=== PATIENT | female | born 1940 | race Caucasian/White ===

== ENCOUNTER 2021-04-15 12:38 | Inpatient (IN) | payer OTHER ==
[~2021-04-15] VITALS: Ht 142.2 cm; Wt 80.7 kg
[2021-04-15 13:45] LABS: BASOPHILS % 0.9 % (0.0-2.0); EOSINOPHILS % 0.6 % (0.0-5.0); LYMPHOCYTES % 23.1 % (20.0-50.0); MEAN CORPUSCULAR HEMOGLOBIN 20.6 pg (28.0-32.0); MEAN CORPUSCULAR VOLUME 69.2 fL (81.0-99.0); MEAN PLATELET VOLUME 8.9 fl (7.4-10.4); MONOCYTES % 7.4 % (2.0-8.0); PLATELET 180 x1000/uL (130-400); RED BLOOD CELL COUNT 3.03 mill/uL (4.2-5.4)
[2021-04-15 13:47] LABS: CHLORIDE 106 mEq/L (98-107)
[2021-04-15 13:51] LABS: PROTHROMBIN TIME 10.9 sec (9.6-11.0)
[2021-04-15 13:53] LABS: HEMATOCRIT. 20.9 % (36.0-48.0); HEMOGLOBIN. 6.2 g/dL (12.0-16.0)
[2021-04-15 14:10] LABS: PLATELET ESTIMATE NORMAL
[2021-04-15] MEDS ORDERED: IOHEXOL-300 100 ML BOTTLE ONE (21:05)
[2021-04-16] MEDS ORDERED: MAGNESIUM/ALUMINUM HYDROXIDE/SIMETHICONE 30ML UDC PO PRN (00:30)
[2021-04-16] MEDS ORDERED: DOCUSATE SODIUM 100MG CAPSULE PO PRN (00:30)
[2021-04-16] MEDS ORDERED: ONDANSETRON HCL 4MG/2ML INJ IV PRN (00:30)
[2021-04-16] MEDS ORDERED: ACETAMINOPHEN 325MG TABLET PO PRN (00:30)
[2021-04-16 08:00] VITALS: BP 133/66
[2021-04-16 09:15] VITALS: BP 112/68
[2021-04-16 12:00] VITALS: BP 132/68
[2021-04-16 12:50] LABS: EOSINOPHILS % 1.4 % (0.0-5.0); HEMATOCRIT. 26.9 % (36.0-48.0); HEMOGLOBIN. 8.1 g/dL (12.0-16.0); LYMPHOCYTES % 22.4 % (20.0-50.0); MEAN CORPUSCULAR HEMOGLOBIN 21.2 pg (28.0-32.0); MEAN CORPUSCULAR VOLUME 70.5 fL (81.0-99.0); MEAN PLATELET VOLUME 9.1 fl (7.4-10.4); MONOCYTES % 8.4 % (2.0-8.0); NEUTROPHILS % 66.8 % (40.0-76.0); PLATELET 173 x1000/uL (130-400); RED BLOOD CELL COUNT 3.81 mill/uL (4.2-5.4); RED CELL DISTRIBUTION WIDTH 17.6 % (11.6-14.6)
[2021-04-16 12:59] LABS: CHLORIDE 103 mEq/L (98-107)
[2021-04-16 13:12] LABS: TOTAL IRON BINDING CAPACITY 500 ug/dL (250-450)
[2021-04-16 16:00] VITALS: BP 142/68
[2021-04-16] MEDS ORDERED: LANTUSUD SUBCUT (16:09)
[2021-04-16] MEDS ORDERED: METF-874 PO (16:09)
[2021-04-16] MEDS ORDERED: DEXTROSE 50% WATER 50ML SYRINGE IV PRN (19:30)
[2021-04-16 20:00] VITALS: BP 122/63
[2021-04-16] MEDS ORDERED: ENOXAPARIN 40MG/0.4ML SYR SUBCUT SCH (21:00)
[2021-04-16] MEDS: BLOOD SUGAR DIAGNOSTIC STRIP TEST SCH (22:10)
[2021-04-16] MEDS: INSULIN LISPRO 100 UNITS/ML SUBCUT SCH (22:45)
[2021-04-17] VITALS: BP 126/52
[2021-04-17 04:00] VITALS: BP 97/43
[2021-04-17] MEDS: BLOOD SUGAR DIAGNOSTIC STRIP TEST SCH ×2 (06:25→11:45)
[2021-04-17] MEDS: INSULIN LISPRO 100 UNITS/ML SUBCUT SCH ×2 (07:15→12:15)
[2021-04-17 08:00] VITALS: BP 134/62
[2021-04-17 12:54] VITALS: BP 127/62
[2021-04-17 12:56] VITALS: BP 127/62
== END 2021-04-17 13:35 | disposition home or self-care (01) | DRG 663 ==
LOC: ER 12:38 → EDBEDREQTM 22:01 → EDBEDREQ 22:01 → EDBEDREQSVC 22:01 → MICUSO 23:06 → 5WST 04-16 09:45
PROVIDERS: ADMIT Hospitalist; ATTEND Hospitalist
PROC: 30233N1 Transfusion of Nonautologous Red Blood Cells into Peripheral Vein, Percutaneous Approach (ICD-10-PCS; principal; 2021-04-15)
DX: D64.9 Anemia, unspecified (principal); K75.9 Inflammatory liver disease, unspecified; E11.9 Type 2 diabetes mellitus without complications; Z20.822 Contact with and (suspected) exposure to COVID-19; I10 Essential (primary) hypertension; E78.00 Pure hypercholesterolemia, unspecified; Z90.49 Acquired absence of other specified parts of digestive tract
CPT/HCPCS: 36415; 71045; 74177; 80053; 82270; 82962; 83540; 83550; 83605; 85025; 86850; 86900; 86920; 87426; 93970; 99285; J1650; J1815; J7040; P9016; Q9967

== ENCOUNTER 2022-01-24 19:25 | Emergency (ER) | payer OTHER ==
[~2022-01-24] VITALS: Ht 167.6 cm; Wt 63.0 kg
[~2022-01-24 19:25] MED LIST: LANTUSUD SUBCUT; METF-874 PO
[2022-01-24] MEDS ORDERED: HYDROCODONE/ACETAMINOPHEN 7.5/325MG TABLET PO ONE (20:00)
[2022-01-24 20:40] LABS: BASOPHILS % 0.3 % (0.0-2.0); HEMATOCRIT. 30.3 % (36.0-48.0); HEMOGLOBIN. 9.5 g/dL (12.0-16.0); LYMPHOCYTES % 10.9 % (20.0-50.0); MEAN CORPUSCULAR HEMOGLOBIN 25.5 pg (28.0-32.0); MEAN CORPUSCULAR VOLUME 81.1 fL (81.0-99.0); MEAN PLATELET VOLUME 9.3 fl (7.4-10.4); MONOCYTES % 7.6 % (2.0-8.0); NEUTROPHILS % 81.2 % (40.0-76.0); PLATELET 122 x1000/uL (130-400); RED BLOOD CELL COUNT 3.73 mill/uL (4.2-5.4); RED CELL DISTRIBUTION WIDTH 20.4 % (11.6-14.6)
[2022-01-24 20:46] LABS: CHLORIDE 104 mEq/L (98-107)
[2022-01-24 20:50] LABS: PROTHROMBIN TIME 11.2 sec (9.6-11.0)
[2022-01-24] MEDS ORDERED: HYDROCODONE/ACETAMINOPHEN 7.5/325MG TABLET PO NR (22:30)
[2022-01-25] MEDS ORDERED: HYDROCODONE/ACETAMINOPHEN 10/325MG TABLET PO ONE (12:45)
[2022-01-25 13:25] VITALS: BP 115/67
== END 2022-01-25 13:50 | disposition short-term general hospital (02) ==
LOC: ER 19:25 → CANBEDREQ 01-26 10:42
DX: S72.142A Displaced intertrochanteric fracture of left femur, initial encounter for closed fracture (principal); M97.02XA Periprosthetic fracture around internal prosthetic left hip joint, initial encounter; W18.39XA Other fall on same level, initial encounter; Y93.89 Activity, other specified; Y92.89 Other specified places as the place of occurrence of the external cause; Y99.8 Other external cause status; Z20.822 Contact with and (suspected) exposure to COVID-19
CPT/HCPCS: 36415; 72131; 72192; 73502; 73700; 80053; 85025; 85610; 87426; 99285; C9803; Z7610